=== PATIENT | male | born 1965 | race Caucasian/White ===

== ENCOUNTER 2017-01-17 15:49 | Inpatient (IN) | payer OTHER ==
--- NOTE | ~2017-01-17 | HP ---
History And Physical [address] [place]. [address] NAME: MARQUISE RUSSELL : 67 STATUS : ADM IN [facility]#: [id number] AGE: 51 ADM/REG DATE : 01/17/17 MR#: [id number] REPORT SERV DATE: 01/19/17 DICTATED BY: DATE: REPORT STATUS : Draft TRANSCRIBED BY: MODL DATE: 01/18/17 DATE OF ADMISSION: 01/17/2017 CHIEF COMPLAINT: Pain, redness, left BKA. HISTORY OF PRESENT ILLNESS: Mr. Russell is a 51-year-old white male with end-stage renal disease secondary to diabetes with retinopathy, neuropathy, and gastroparesis. He also has peripheral vascular disease, status post bilateral BKA. He presented to the emergency room with a chief complaint of left stump pain, open wound, states that his prosthesis has been mal-fitting and rubbing sore on the lateral aspect of his BKA stump. He has had some serous drainage. It does have odor to it at this point. He denies any fevers or chills. No nausea, other than his usual gastroparesis or signs of systemic symptoms. In the emergency department, his white blood cell count was normal. The left leg plain x-ray reveals no findings consistent with osteomyelitis and given his history and complaints, he is going to be admitted for further evaluation and treatment. PAST MEDICAL HISTORY: End-stage renal disease, dialyzes Thursday, Thursday, and Thursday at [address], hypertension, atrial fibrillation on Eliquis, diabetes with retinopathy, neuropathy, and gastroparesis, bilateral BKAs with peripheral vascular disease, right fifth finger amputation, hyperlipidemia, nonobstructive coronary artery disease, and anemia. FAMILY MEDICAL HISTORY: No end-stage renal disease. SOCIAL HISTORY: He lives alone. No tobacco, alcohol, or illicit drug use. ALLERGIES: TO PENICILLIN, CODEINE, AND OXYCODONE. HOME MEDICATIONS: Complete list is not available, but he does take amiodarone 200 daily, Norvasc, Eliquis, PhosLo, Lasix, Lantus, Imdur, losartan, Reglan, Lopressor, Protonix, sodium bicarbonate, and Desyrel. REVIEW OF SYSTEMS: 12-point review of systems obtained and negative with the exception of that in the HPI. PHYSICAL EXAMINATION: VITAL SIGNS: Temp 97.6, blood pressure is 187/91, pulse 54, respiratory rate 16, O2 saturation is 94%. GENERAL: This is a pleasant, cooperative, chronically ill-appearing white male. He is awake, alert, and oriented x3. No acute distress. Answers questions appropriately. HEENT: Normocephalic, atraumatic. Conjunctivae clear. Sclerae anicteric. Pupils are equal and round. Oral mucosa is moist. NECK: Supple. Carotids are brisk. Neck veins flat. No lymphadenopathy. LUNGS: Respirations even and unlabored. Breath sounds clear to auscultation. HEART: Rate is regular. No murmur, rub, or gallop. ABDOMEN: Soft and nontender. Bowel sounds active. No masses. No hepatosplenomegaly. No bruits. No CVA tenderness. History And Physical [address] [address] NAME: MARQUISE RUSSELL : 67 STATUS : ADM IN [facility]#: [id number] AGE: 51 ADM/REG DATE : 01/17/17 MR#: [id number] REPORT SERV DATE: 01/19/17 DICTATED BY: DATE: REPORT STATUS : Draft TRANSCRIBED BY: MODL DATE: 01/18/17 BACK: Within normal limits. EXTREMITIES: Bilateral BKAs, right stump without any lesions. To the left stump on the lateral aspect, he has an open wound with rivas sloughy material, it is approximately the diameter of golf ball. He has also some foul-smelling serous drainage. No fluctuance surrounding the wound or induration. He has a couple more flat like lesions, but they are not open, they are just having erythema, no fluctuance or induration today as well. NEUROLOGIC: No focal deficits. His mood and affect are very pleasant and appropriate. PERTINENT LABS AND X-RAYS: WBCs 9.5, H and H 10 and 33, platelets 198,000. Sodium 138, potassium 4.8, chloride 97, CO2 of 25, BUN of 40, creatinine of 7, calcium of 8.1, albumin of 3.7. LFTs are unremarkable. A left leg plain film without any findings consistent with osteomyelitis. IMPRESSION: 1. Left below knee amputation cellulitis/open wound in the setting of diabetes. 2. End-stage renal disease. 3. Diabetes. 4. Peripheral vascular disease, status post bilateral below knee amputation. 5. Atrial fibrillation, on Eliquis. PLAN: He is going to be started empirically on Maxipime and vancomycin. We will have Vascular Surgery and Wound Care see the patient. Pain medicines p.r.n. Dialysis tomorrow per routine. Usual medicines from home. Further orders and recommendations pending clinical course. NAT/DARIELA PATRIZIA Vieyra / [id number] CC: Josafat Marquez M.D.
--- NOTE | ~2017-01-17 | DS ---
Discharge Summary [facility] [address] [place]. [address] NAME: MARQUISE STARKEY : 67 STATUS : DIS IN PAT#: [id number] AGE: 51 ADM/REG DATE : 01/17/17 MR#: [id number] REPORT SERV DATE: 02/03/17 DICTATED BY: PRATIMA JIMENEZ DATE: 02/02/17 REPORT STATUS : Draft TRANSCRIBED BY: MODWesley DATE: 02/02/17 Data Collection from hospitalization DISCHARGE DIAGNOSES: 1. End-stage renal disease. 2. Diabetes mellitus. 3. Left lower extremity ulceration/wound, status post exam/debridement, left lower extremity, status post VAC pack placement. 4. Hypertension. 5. Atrial fibrillation. 6. Retinopathy. 7. Neuropathy. 8. Gastroparesis. 9. Peripheral vascular disease status post bilateral below-knee amputations. 10.Hyperlipidemia. 11.Nonobstructive coronary artery disease. 12.Anemia. CONSULTATION: PATRIZIA Vieyra PROCEDURES PERFORMED: Excision debridement of skin and subcutaneous tissue with left below- knee amputation, 3 x 3 cm, placement of VAC dressing 9 sq cm, left [id number] amputation, 01/20/2017. MEDICATIONS: Cordarone 200 mg daily, Norvasc 5 mg twice a day, Eliquis 5 mg twice a day, PhosLo three tablets with meals, Lasix 80 mg daily, Success 10/325 one tablet every six hours as needed, Lantus 7 units subcutaneously at bedtime, Imdur 30 mg daily, Cozaar 100 mg daily, Reglan 10 mg before meals and at bedtime, Lopressor 25 mg daily, Protonix 40 mg daily, sodium bicarbonate 650 mg twice a day, Desyrel 50 mg at bedtime. CONDITION AT DISCHARGE: Stable. DISPOSITION: The patient was discharged home to be followed by home health care on a 2000- calorie diabetic diet with no concentrated carbohydrates and activities as instructed. He would follow up with Dr. Colby Nieves as instructed. He would follow up with Dr. Pratima Jimenez in 10-14 days following discharge. HOSPITAL COURSE: This is a 51-year-old man, who has end-stage renal disease secondary to diabetes with retinopathy, neuropathy, and gastroparesis. He also has peripheral vascular disease and is status post bilateral below-knee amputations. He presented to the emergency room with chief complaint of left stump pain, open wound and said that his prosthesis had been mal-fitting and rubbing sore on the lateral aspect of his below-knee amputation stump. He had had some serous drainage. It did have some odor at this point. He denied any fevers or chills. He had no nausea other than his usual gastroparesis and no signs of systemic symptoms. In the emergency department, his white blood cell count was normal. Left leg plain x-ray revealed no findings consistent with osteomyelitis and given his history and complaints, he was admitted to the hospital at this time for further evaluation and treatment. Discharge Summary [facility] [address] [place]. [address] NAME: MARQUISE STARKEY : 67 STATUS : DIS IN [facility]#: [id number] AGE: 51 ADM/REG DATE : 01/17/17 MR#: [id number] REPORT SERV DATE: 02/03/17 DICTATED BY: PRATIMA JIMENEZ DATE: 02/02/17 REPORT STATUS : Draft TRANSCRIBED BY: DARIELA DATE: 02/02/17 Upon admission, he was started empirically on vancomycin and Maxipime. He was seen by Jeanne Dasilva. Pain medications were going to be given as needed. He would be placed on dialysis the following day per routine. His usual home medications were going to be continued. White count was 9.5, creatinine level was 7. The following day, he had no new complaints. Creatinine level was 8.99. Blood cultures were negative. He remained afebrile. It was felt that he would need to undergo debridement and placement of a VAC dressing. He has an ulceration with purulent drainage from the lateral aspect. He has palpable popliteal pulse. It was felt that he would benefit from debridement of this with placement of a VAC dressing. He was taken to the operating room, where he underwent the above-mentioned procedure. He tolerated this well and there were no complications. He seemed to be in good spirits. He had no new complaints. On 01/21/2017, hemodialysis therapy was performed. Blood glucose was better after his diet was resumed and insulin. Vancomycin and cefepime were discontinued. He received one dose of vancomycin that day. Would VAC remained in place. The next day, discharge planning was performed. He had no new complaints, other than some postop pain. The VAC pack was changed. Discharge planning continued. On 01/23/2017, hemodialysis therapy was performed. He remained afebrile. The VAC was clean, dry, and intact. Discharge instructions were given. Due to his improved and stable condition, he was discharged home to be followed by home health care with the above-stated instructions. Information collected by: Jailyn Macias I submit the above information as my discharge summary. TG/MODWesley Pratima Jimenez M.D. / [id number] CC: Josafat Marquez M.D. Jessica Craig, FNP
--- NOTE | ~2017-01-17 | OP ---
Record Of Operation [facility] [address] [place]. [address] NAME: MARQUISE STARKEY : 67 STATUS : ADM IN [facility]#: [id number] AGE: 51 ADM/REG DATE : 01/17/17 MR#: [id number] REPORT SERV DATE: 01/20/17 DICTATED BY: MARCO JIMENEZ DATE: 01/20/17 REPORT STATUS : Draft TRANSCRIBED BY: MODL DATE: 01/20/17 DATE OF PROCEDURE: 01/20/2017 PREOPERATIVE DIAGNOSIS: Ulceration left foot, amputation laterally. POSTOPERATIVE DIAGNOSIS: Ulceration left foot, amputation laterally. PROCEDURE: 1. Excisional debridement of skin and subcutaneous tissues with left below-knee amputation 3 x 3 cm. 2. Placement of VAC dressing 9 cm2, left below-knee amputation. SURGEON: Marco Jimenez M.D. SITE LEASING AGENT: Aranza. ANESTHESIA: General. COMPLICATIONS: None. ESTIMATED BLOOD LOSS: 30 mL. HISTORY: The patient is a 51-year-old male with a long-standing left below-knee amputation. He has ulceration with purulent drainage from the lateral aspect. He has palpable popliteal pulse. It was thought he would benefit from debridement of this with placement of VAC dressing. This was discussed in detail with the patient. He expressed understanding and desired to proceed. DESCRIPTION OF PROCEDURE: The patient was taken to the operating room and placed in the supine position. He was given general anesthesia without complication and left below-knee amputation. He was prepped and draped in a sterile fashion. A 10 blade was used to excise the skin and subcutaneous tissues at the ulcer site debriding the fibrinous debris. This left healthy remaining tissue with good bleeding and no purulence. The wound tracked deep near the fibula but the fibula was not exposed in the wound. Bovie cautery was used to achieve hemostasis. The wound measured 3 x 3 cm. Small VAC sponge was cut to appropriate size and secured with adhesive without difficulty. Suction initiated. The patient tolerated the procedure well. LIBRA/DARIELA Marco Jimenez M.D. / [id number] Record Of Operation [facility] [address] [place] [address] NAME: MARQUISE STARKEY : 67 STATUS : ADM IN PAT#: [id number] AGE: 51 ADM/REG DATE : 01/17/17 MR#: [id number] REPORT SERV DATE: 01/20/17 DICTATED BY: MARCO JIMENEZ DATE: 01/20/17 REPORT STATUS : Draft TRANSCRIBED BY: MODL DATE: 01/20/17 CC: Josafat Marquez M.D.
[~2017-01-17 15:49] MED LIST: *UNABLE1; ACET500CAP PO; ACTOS45 PO; BACDS PO; BACTROINT TOP; BENTYL10 PO; C1 PO; C5 PO; CARTIA XT180 MG/24 PO; CORDARONE PO; COREG25 PO; COREG3 PO; COREG6 PO; COUMADIN3 MG PO; COUMADIN6 MG PO; DEEP SEA0.65 % NAS; DIALYSIS IV; DIL4TAB PO; DSS PO; DURICEF PO; FEOSOL200 MG PO; FLONASE NAS; FLORASTOR250 MG PO; FUSION PLUS PO; GLUCOPHAGE1000 MG PO; GLUCPH PO; IMDUR30 PO; INTEGRA PLUS C1 EACH PO; IRON PO; IRON SUPPLEMENT PO; ISOSORB DIN30 MG PO; JANTOVEN3 MG PO; K-TABS10 MEQ PO; L40 PO; L80 PO; LANTUS SC; LANTUS SQ; LASIX; LEVAQUIN750 MG PO; LIPITOR PO; LIPITOR20 PO; LIPITOR40 PO; LIPITOR80 MG PO; LISINOPRIL40 MG PO; LOFIB160 PO; LOFIBRA160 MG PO; LOM PO; LOP25 PO; MIRALAXPKT PO; MUCINEX600 MG PO; NEO-SYNEPHRI0.05 % NAS; NORV10 PO; NORV5 PO; NOVOLOG SC; NOVOLOGMIX SC; NOVOPEN SC; NOXAFIL OR; OS500+D PO; OTC IRON TAB PO; OTC IRON TABLET PO; PACERONE100 MG PO; PHOSLO PO; PR25 PO; PRAVACHOL40 MG PO; PREND2 PO; PROTONIX PO; REG PO; SODBICAR10 PO; TRAZ50 PO; TUMS PO; TUMSROLL PO; ULTRAM50 PO; UNK CHOLESTEROL MED; VERAMYST27.5 MCG NAS; VITAMIN D PO; VITAMIN D1000 UNI1 PO; VITAMIN D2000 UNIT PO; VITAMIN D3 PO; VITAMIN D31000 UNIT PO; ZESTRIL10 MG PO; ZITH250 PO
[2017-01-17 19:28] LABS: BASOPHILS 0.3 %; BASOPHILS ABSOLUTE 0.03 10/3/uL (0.0-0.16); EOSINOPHILS 1.4 %; EOSINOPHILS ABSOLUTE 0.13 10/3/uL (0.0-0.53); ER CBC TAT 0 Hrs 13 Mins; HEMATOCRIT 33.4 % (40.0-51.0); HEMOGLOBIN 10.6 g/dL (13.6-17.8); IMMATURE GRANULOCYTES 0.2 %; IMMATURE GRANULOCYTES ABSOLUTE 0.02 10/3/uL (0.0-0.11); LYMPHOCYTES 11.5 %; LYMPHOCYTES ABSOLUTE 1.09 10/3/uL (0.67-4.30); MANUAL DIFF NO %; MEAN CORPUS HGB CONC 31.7 g/dL (32.0-36.0); MEAN CORPUSCULAR VOLUME 88.4 fL (80-100); MEAN PLATELET VOLUME 11.9 fL (9.2-13.0); MONOCYTES 10.9 %; MONOCYTES ABSOLUTE 1.03 10/3/uL (0.21-1.20); NEUTROPHILS 75.7 %; NEUTROPHILS ABSOLUTE 7.19 10/3/uL (2.02-8.40); PLATELET COUNT 198 10/3/uL (150-400); RBC DISTRIBUTION WIDTH 17.2 % (12.0-16.0); RED CELL COUNT 3.78 10/6/uL (4.7-6.1); WHITE BLOOD CELLS 9.5 10/3/uL (4.5-10.5)
[2017-01-17] MEDS ORDERED: ELIQUIS 5 MG TAB5 MG PO (19:41)
[2017-01-17] MEDS ORDERED: PROTONIX PO (19:41)
[2017-01-17] MEDS ORDERED: REG PO (19:42)
[2017-01-17] MEDS ORDERED: LANTUS SC (19:42)
[2017-01-17] MEDS ORDERED: SODBICAR10 PO (19:42)
[2017-01-17] MEDS ORDERED: NORV5 PO (19:42)
[2017-01-17] MEDS ORDERED: IMDUR30 PO (19:42)
[2017-01-17] MEDS ORDERED: CORDARONE PO (19:43)
[2017-01-17] MEDS ORDERED: PHOSLO PO (19:43)
[2017-01-17] MEDS ORDERED: TRAZ50 PO (19:43)
[2017-01-17] MEDS ORDERED: L80 PO (19:43)
[2017-01-17] MEDS ORDERED: LOP25 PO (19:43)
[2017-01-17] MEDS ORDERED: COZAAR100 MG PO (19:43)
[2017-01-17 19:44] LABS: ALBUMIN 3.7 G/DL (3.5-5.0); ALKALINE PHOSPHATASE 49 U/L (45-117); BUN (BLOOD UREA NITROGEN) 40 MG/DL (6-23); CALCIUM, SERUM 8.1 MG/DL (8.5-10.4); CHLORIDE, SERUM 99 MMOL/L (96-112); CO2 (CARBON DIOXIDE) 27 MMOL/L (24-34); CREATININE 7.06 MG/DL (0.70-1.30); GFR AFRICAN AMERICAN 10 ML/MIN (>=60); GFR NON AFRICAN AMERICAN 8 ML/MIN (>=60); GLOBULIN 3.8 G/DL (2.5-4.1); GLUCOSE, SERUM 132 MG/DL (60-99); POTASSIUM, SERUM 4.8 MMOL/L (3.5-5.3); SGOT(AST) 16 U/L (5-40); SGPT(ALT) 14 U/L (5-65); SODIUM, SERUM 138 MMOL/L (135-148); TOTAL BILIRUBIN 0.6 MG/DL (0-1.2); TOTAL PROTEIN 7.5 G/DL (6.0-8.5)
[2017-01-19 07:19] LABS: BASOPHILS 0.5 %; BASOPHILS ABSOLUTE 0.03 10/3/uL (0.0-0.16); EOSINOPHILS 2.3 %; EOSINOPHILS ABSOLUTE 0.15 10/3/uL (0.0-0.53); HEMATOCRIT 33.3 % (40.0-51.0); HEMOGLOBIN 10.6 g/dL (13.6-17.8); IMMATURE GRANULOCYTES 0.3 %; IMMATURE GRANULOCYTES ABSOLUTE 0.02 10/3/uL (0.0-0.11); LYMPHOCYTES 12.8 %; LYMPHOCYTES ABSOLUTE 0.84 10/3/uL (0.67-4.30); MEAN CORPUS HGB CONC 31.8 g/dL (32.0-36.0); MEAN CORPUSCULAR HEMOGLOB 28.3 pg (26.0-34.0); MEAN PLATELET VOLUME 11.8 fL (9.2-13.0); MONOCYTES 9.5 %; MONOCYTES ABSOLUTE 0.62 10/3/uL (0.21-1.20); NEUTROPHILS 74.6 %; NEUTROPHILS ABSOLUTE 4.89 10/3/uL (2.02-8.40); PLATELET COUNT 189 10/3/uL (150-400); RBC DISTRIBUTION WIDTH 16.9 % (12.0-16.0); RED CELL COUNT 3.74 10/6/uL (4.7-6.1); WHITE BLOOD CELLS 6.6 10/3/uL (4.5-10.5)
[2017-01-19 07:20] LABS: MANUAL DIFF NO %
[2017-01-19 07:41] LABS: ALBUMIN 3.4 G/DL (3.5-5.0); BUN (BLOOD UREA NITROGEN) 63 MG/DL (6-23); CALCIUM, SERUM 8.4 MG/DL (8.5-10.4); CHLORIDE, SERUM 102 MMOL/L (96-112); CO2 (CARBON DIOXIDE) 25 MMOL/L (24-34); CREATININE 8.99 MG/DL (0.70-1.30); GFR AFRICAN AMERICAN 7 ML/MIN (>=60); GFR NON AFRICAN AMERICAN 6 ML/MIN (>=60); GLUCOSE, SERUM 70 MG/DL (60-99); POTASSIUM, SERUM 5.2 MMOL/L (3.5-5.3); SODIUM, SERUM 136 MMOL/L (135-148)
[2017-01-20 06:17] LABS: ALBUMIN 3.4 G/DL (3.5-5.0); CALCIUM, SERUM 8.2 MG/DL (8.5-10.4); CHLORIDE, SERUM 103 MMOL/L (96-112); CO2 (CARBON DIOXIDE) 27 MMOL/L (24-34); POTASSIUM, SERUM 4.8 MMOL/L (3.5-5.3); SODIUM, SERUM 139 MMOL/L (135-148)
[2017-01-20 06:18] LABS: BUN (BLOOD UREA NITROGEN) 47 MG/DL (6-23); CREATININE 7.07 MG/DL (0.70-1.30); GFR AFRICAN AMERICAN 10 ML/MIN (>=60); GFR NON AFRICAN AMERICAN 8 ML/MIN (>=60); GLUCOSE, SERUM 227 MG/DL (60-99); PHOSPHORUS, SERUM 6.3 MG/DL (2.5-4.5)
[2017-01-20 06:28] LABS: BASOPHILS 0.7 %; BASOPHILS ABSOLUTE 0.04 10/3/uL (0.0-0.16); EOSINOPHILS 3.9 %; EOSINOPHILS ABSOLUTE 0.24 10/3/uL (0.0-0.53); HEMATOCRIT 34.3 % (40.0-51.0); HEMOGLOBIN 10.7 g/dL (13.6-17.8); IMMATURE GRANULOCYTES 0.3 %; IMMATURE GRANULOCYTES ABSOLUTE 0.02 10/3/uL (0.0-0.11); LYMPHOCYTES 15.3 %; LYMPHOCYTES ABSOLUTE 0.94 10/3/uL (0.67-4.30); MEAN CORPUS HGB CONC 31.2 g/dL (32.0-36.0); MEAN CORPUSCULAR HEMOGLOB 28.1 pg (26.0-34.0); MEAN PLATELET VOLUME 12.6 fL (9.2-13.0); MONOCYTES 10.6 %; MONOCYTES ABSOLUTE 0.65 10/3/uL (0.21-1.20); NEUTROPHILS 69.2 %; NEUTROPHILS ABSOLUTE 4.25 10/3/uL (2.02-8.40); PLATELET COUNT 211 10/3/uL (150-400); RBC DISTRIBUTION WIDTH 16.8 % (12.0-16.0); RED CELL COUNT 3.81 10/6/uL (4.7-6.1); WHITE BLOOD CELLS 6.1 10/3/uL (4.5-10.5)
[2017-01-20 06:30] LABS: MANUAL DIFF NO %
[2017-01-21 09:01] LABS: BASOPHILS 0.4 %; BASOPHILS ABSOLUTE 0.03 10/3/uL (0.0-0.16); EOSINOPHILS 3.5 %; EOSINOPHILS ABSOLUTE 0.24 10/3/uL (0.0-0.53); HEMATOCRIT 32.6 % (40.0-51.0); HEMOGLOBIN 10.3 g/dL (13.6-17.8); IMMATURE GRANULOCYTES 0.3 %; IMMATURE GRANULOCYTES ABSOLUTE 0.02 10/3/uL (0.0-0.11); LYMPHOCYTES 13.1 %; LYMPHOCYTES ABSOLUTE 0.89 10/3/uL (0.67-4.30); MEAN CORPUS HGB CONC 31.6 g/dL (32.0-36.0); MEAN CORPUSCULAR HEMOGLOB 28.1 pg (26.0-34.0); MEAN CORPUSCULAR VOLUME 89.1 fL (80-100); MEAN PLATELET VOLUME 11.9 fL (9.2-13.0); MONOCYTES 10.6 %; MONOCYTES ABSOLUTE 0.72 10/3/uL (0.21-1.20); NEUTROPHILS 72.1 %; PLATELET COUNT 192 10/3/uL (150-400); RBC DISTRIBUTION WIDTH 16.7 % (12.0-16.0); RED CELL COUNT 3.66 10/6/uL (4.7-6.1); WHITE BLOOD CELLS 6.8 10/3/uL (4.5-10.5)
[2017-01-21 09:04] LABS: MANUAL DIFF NO %
[2017-01-21 09:18] LABS: ALBUMIN 3.4 G/DL (3.5-5.0); CALCIUM, SERUM 8.3 MG/DL (8.5-10.4); CHLORIDE, SERUM 102 MMOL/L (96-112); CO2 (CARBON DIOXIDE) 27 MMOL/L (24-34); POTASSIUM, SERUM 5.4 MMOL/L (3.5-5.3); SODIUM, SERUM 140 MMOL/L (135-148)
[2017-01-21 09:19] LABS: BUN (BLOOD UREA NITROGEN) 56 MG/DL (6-23); CREATININE 8.71 MG/DL (0.70-1.30); GFR AFRICAN AMERICAN 7 ML/MIN (>=60); GFR NON AFRICAN AMERICAN 6 ML/MIN (>=60); GLUCOSE, SERUM 124 MG/DL (60-99); PHOSPHORUS, SERUM 7.6 MG/DL (2.5-4.5)
[2017-01-23 06:58] LABS: BASOPHILS 0.4 %; BASOPHILS ABSOLUTE 0.03 10/3/uL (0.0-0.16); EOSINOPHILS ABSOLUTE 0.24 10/3/uL (0.0-0.53); HEMATOCRIT 34.4 % (40.0-51.0); HEMOGLOBIN 10.9 g/dL (13.6-17.8); IMMATURE GRANULOCYTES 0.1 %; IMMATURE GRANULOCYTES ABSOLUTE 0.01 10/3/uL (0.0-0.11); LYMPHOCYTES 11.1 %; MANUAL DIFF NO %; MEAN CORPUS HGB CONC 31.7 g/dL (32.0-36.0); MEAN CORPUSCULAR HEMOGLOB 28.3 pg (26.0-34.0); MEAN CORPUSCULAR VOLUME 89.4 fL (80-100); MEAN PLATELET VOLUME 12.1 fL (9.2-13.0); MONOCYTES 9.7 %; MONOCYTES ABSOLUTE 0.78 10/3/uL (0.21-1.20); NEUTROPHILS 75.7 %; NEUTROPHILS ABSOLUTE 6.12 10/3/uL (2.02-8.40); PLATELET COUNT 220 10/3/uL (150-400); RBC DISTRIBUTION WIDTH 16.6 % (12.0-16.0); RED CELL COUNT 3.85 10/6/uL (4.7-6.1); WHITE BLOOD CELLS 8.1 10/3/uL (4.5-10.5)
[2017-01-23 07:14] LABS: ALBUMIN 3.4 G/DL (3.5-5.0); BUN (BLOOD UREA NITROGEN) 61 MG/DL (6-23); CALCIUM, SERUM 9.4 MG/DL (8.5-10.4); CHLORIDE, SERUM 101 MMOL/L (96-112); CO2 (CARBON DIOXIDE) 25 MMOL/L (24-34); CREATININE 8.84 MG/DL (0.70-1.30); GFR AFRICAN AMERICAN 7 ML/MIN (>=60); GFR NON AFRICAN AMERICAN 6 ML/MIN (>=60); GLUCOSE, SERUM 126 MG/DL (60-99); PHOSPHORUS, SERUM 6.4 MG/DL (2.5-4.5); POTASSIUM, SERUM 5.4 MMOL/L (3.5-5.3); SODIUM, SERUM 135 MMOL/L (135-148)
[2017-01-23] MEDS ORDERED: NORCO1 TAB PO (16:15)
[2017-02-16] MEDS ORDERED: NORV5 PO (04:34)
[2017-02-16] MEDS ORDERED: CORDARONE PO (04:36)
[2017-02-16] MEDS ORDERED: ELIQUIS 5 MG TAB5 MG PO (04:37)
[2017-02-16] MEDS ORDERED: SODBICAR10 PO (04:39)
[2017-02-16] MEDS ORDERED: PROTONIX PO (04:40)
[2017-02-16] MEDS ORDERED: LOP25 PO (04:40)
[2017-02-16] MEDS ORDERED: REG PO (04:44)
[2017-02-16] MEDS ORDERED: IMDUR30 PO (04:44)
[2017-02-16] MEDS ORDERED: BENTYL10 PO (04:46)
[2017-02-16] MEDS ORDERED: L80 PO ×2 (05:02→05:34)
[2017-02-16] MEDS ORDERED: LIPITOR80 MG PO (05:35)
[2017-02-16] MEDS ORDERED: LOFIB160 PO (05:35)
[2017-02-16] MEDS ORDERED: NOVOLOG SC (05:36)
[2017-02-16] MEDS ORDERED: LANTUS SC (05:36)
[2017-02-16] MEDS ORDERED: VITAMIN D31000 UNIT PO (05:37)
[2017-02-16] MEDS ORDERED: TUMSROLL PO (05:37)
[2017-02-16] MEDS ORDERED: TRAZ50 PO (05:38)
[2017-02-16] MEDS ORDERED: COZAAR100 MG PO (05:39)
[2017-02-27] MEDS ORDERED: NEUR100 PO (11:38)
[2017-04-06] MEDS ORDERED: C2 (00:55)
[2017-04-06] MEDS ORDERED: C5 (00:55)
[2017-04-06] MEDS ORDERED: SODBICAR10 PO (12:54)
[2017-04-06] MEDS ORDERED: PACERONE100 MG PO (12:54)
[2017-04-06] MEDS ORDERED: NORV5 PO (12:54)
[2017-04-06] MEDS ORDERED: LOP25 PO (12:55)
[2017-04-06] MEDS ORDERED: PROTONIX PO (12:55)
[2017-04-06] MEDS ORDERED: REG PO (12:55)
[2017-04-06] MEDS ORDERED: IMDUR30 PO (12:55)
[2017-04-06] MEDS ORDERED: L80 PO (12:56)
[2017-04-06] MEDS ORDERED: LOFIB160 PO (12:56)
[2017-04-06] MEDS ORDERED: LIPITOR80 MG PO (12:56)
[2017-04-06] MEDS ORDERED: BENTYL10 PO (12:56)
[2017-04-06] MEDS ORDERED: NOVOLOG SC ×2 (12:56→12:57)
[2017-04-06] MEDS ORDERED: TUMSROLL PO ×2 (12:58)
[2017-04-06] MEDS ORDERED: LANTUS SC (12:58)
[2017-04-06] MEDS ORDERED: VITAMIN D3 GUMMY PO (12:58)
[2017-04-06] MEDS ORDERED: COZAAR100 MG PO (12:59)
[2017-04-06] MEDS ORDERED: ELIQUIS 5 MG TAB5 MG PO (12:59)
[2017-04-06] MEDS ORDERED: NEUR100 PO (13:01)
[2017-04-11] MEDS ORDERED: PEP20 PO (12:25)
[2017-04-11] MEDS ORDERED: FLORASTOR250 MG PO (12:27)
[2017-04-11] MEDS ORDERED: MYLICON 40 MG T40 MG PO (12:28)
== END 2017-01-23 20:30 | disposition home health service (06) | DRG 463 ==
LOC: ER 15:49 → 4SO 22:52
PROVIDERS: Emergency Medicine; Internal Medicine Nephrology; Nurse Practitioner; Registered Nurse; Surgery
PROC: 0JBP0ZZ Excision of Left Lower Leg Subcutaneous Tissue and Fascia, Open Approach (ICD-10-PCS; principal; 2017-01-20 17:00)
DX: T87.44 Infection of amputation stump, left lower extremity (principal); N18.6 End stage renal disease; I12.0 Hypertensive chronic kidney disease with stage 5 chronic kidney disease or end stage renal disease; E11.22 Type 2 diabetes mellitus with diabetic chronic kidney disease; L02.416 Cutaneous abscess of left lower limb; L03.116 Cellulitis of left lower limb; Y83.5 Amputation of limb(s) as the cause of abnormal reaction of the patient, or of later complication, without mention of misadventure at the time of the procedure; Y92.009 Unspecified place in unspecified non-institutional (private) residence as the place of occurrence of the external cause; Z99.2 Dependence on renal dialysis; I48.2 Chronic atrial fibrillation; Z79.01 Long term (current) use of anticoagulants; E11.319 Type 2 diabetes mellitus with unspecified diabetic retinopathy without macular edema; E11.40 Type 2 diabetes mellitus with diabetic neuropathy, unspecified; E11.43 Type 2 diabetes mellitus with diabetic autonomic (poly)neuropathy; K31.84 Gastroparesis; E11.51 Type 2 diabetes mellitus with diabetic peripheral angiopathy without gangrene; E78.5 Hyperlipidemia, unspecified; D63.1 Anemia in chronic kidney disease; Z89.512 Acquired absence of left leg below knee; Z89.511 Acquired absence of right leg below knee; Z89.021 Acquired absence of right finger(s); I25.10 Atherosclerotic heart disease of native coronary artery without angina pectoris; Z79.4 Long term (current) use of insulin; E83.39 Other disorders of phosphorus metabolism
CPT/HCPCS: 73590-LT; 80053; 80069; 80202; 82962; 83735; 85025; 87040; 87070; 87205; 93005; 96365; 96375; 96376; 99285; A9270-GY; G0257; J0330; J0360; J0692; J2250; J2550; J3010; J3370